=== PATIENT | male | born 1935 | race Caucasian/White ===

== ENCOUNTER → 2018-09-21 | Outpatient (CLI) | payer MEDICARE ==
[~2018-09-21] MED LIST: ADULT LOW DOSE81 MG PO; ADVAIR 100-501 EACH; ADVAIR HFA 115-12 GM INH; ASPIRIN EC81 M1 PO; COREG CR20 MG PO; DIOVAN HCT 3201 EACH PO; FISH OIL 500 M1 EAC1 PO; FLOMAX PO; FOLIC ACID0.4 MG PO; HYDROCHLOROTH12.5 MG PO; K-DUR 20 MEQ T20 MEQ PO; MINOCYCLINE HC100 M2 PO; MUCINEX600 MG PO; MUCUS RELIEF C400 MG PO; NORVASC10 MG PO; PLAVIX 75 MG TA75 MG PO; RHINOCORT AQUA8.6 GM; SIMVASTATIN40 MG PO; SINGULAIR; SINGULAIR 10 MG10 M1 PO; TAMSULOSIN HCL0.4 MG PO; VESICARE 5 MG TA5 MG PO; VESICARE10 M1 PO; VICODIN 5-5001 EACH; VITAMIN B-1100 M1 PO; ZYRTEC10 M1 PO; ZYRTEC10 M2 PO
--- NOTE | 2018-09-21 10:11 | 2DMMODE ---
[place] [address] 2 D/M-MODE ECHOCARDIOGRAM Name: DORCAS SAN Room: [facility]#: [id number] Admission: 09/21/18 Attend Phys: Aline Lomeli, Discharge: Date of : 39 Date of Service: 09/21/18 1010 Report #: [id number] THIS REPORT FOR: //name// APPROVED REPORT Study performed: 09/21/2018 08:41:55 EXAM: Comprehensive 2D, Doppler, and color-flow Echocardiogram Patient Location: Out-Patient BSA: 2.12 HR: 60 bpm BP: 115/70 mmHg Other Information Study Quality: Good Indications Aortic Valve Disease 2D Dimensions IVSd: 11.51 (7-11mm) LVOT Diam: 20.61 (18-24mm) LVDd: 46.15 mm PWd: 8.85 (7-11mm) Ascending Ao: 33.60 (22-36mm) LVDs: 29.07 (25-40mm) Aortic Root: 31.25 mm Volumes Left Atrial Volume (Systole) LA ESV Index: 27.00 mL/m2 Aortic Valve AoV Peak Dago.: 1.78 m/s AO Peak Gr.: 12.74 mmHg LVOT Max P.07 mmHg AO Mean Gr.: 7.47 mmHg LVOT Mean P.85 mmHg LVOT Max V: 1.33 m/s AO V2 VTI: 44.02 cm LVOT Mean V: 0.75 m/s JAMSHID (VTI): 2.13 cm2 LVOT V1 VTI: 28.11 cm Mitral Valve E/A Ratio: 0.90 MV Decel. Time: 250.70 ms MV E Max Dago.: 0.96 m/s MV PHT: 72.70 ms MVA (PHT): 3.03 [place]2 [place] [address] 2 D/M-MODE ECHOCARDIOGRAM Name: DORCAS SAN Room: [facility]#: [id number] Admission: 09/21/18 Attend Phys: Aline Lomeli, Discharge: Date of : 39 Date of Service: 09/21/18 1010 Report #: [id number] TDI E/Lateral E': 13.71 E/Medial E': 9.60 Medial E' Dago.: 0.10 m/s Lateral E' Dago.: 0.07 m/s Pulmonary Valve PV Peak Dago.: 0.94 m/s PV Peak Gr.: 3.57 mmHg Tricuspid Valve RAP Estimate: 5.00 mmHg TR Peak Gr.: 22.14 mmHg RVSP: 27.14 mmHg PA Pressure: 27.14 mmHg Left Ventricle The left ventricle is normal size. There is normal LV segmental wall motion. There is normal left ventricular wall thickness. Left ventricular systolic function is normal. The left ventricular ejection fraction is within the normal range. LVEF is 60%. Grade I - abnormal relaxation pattern. Right Ventricle The right ventricle is normal size. The right ventricular systolic function is normal. Atria Left atrium is mildly dilated. The right atrium size is normal. Aortic Valve Moderate aortic valve sclerosis. Trace aortic regurgitation. No hemodynamically significant valvular aortic stenosis. Mitral Valve Mild mitral annular calcification. Mild mitral regurgitation. No evidence of mitral valve stenosis. Tricuspid Valve The tricuspid valve is normal in structure. Mild tricuspid regurgitation. Pulmonic Valve The pulmonary valve is normal in structure. There is no pulmonic valvular regurgitation[place] [address] 2 D/M-MODE ECHOCARDIOGRAM Name: JSAWINDERDORCAS QUEEN Room: [facility]#: [id number] Admission: 09/21/18 Attend Phys: Alien Lomeli, Discharge: Date of : 39 Date of Service: 09/21/18 1010 Report #: [id number] The aortic root is normal in size. IVC is normal in size and collapses >50% with inspiration. Pericardium There is no pericardial effusion. <Conclusion> The left ventricle is normal size. There is normal left ventricular wall thickness. Left ventricular systolic function is normal. The left ventricular ejection fraction is within the normal range. LVEF is 60%. Grade I - abnormal relaxation pattern. The right ventricle is normal size. Left atrium is mildly dilated. The right atrium size is normal. Moderate aortic valve sclerosis. Trace aortic regurgitation. No hemodynamically significant valvular aortic stenosis. Mild mitral annular calcification. Mild mitral regurgitation. No evidence of mitral valve stenosis. The tricuspid valve is normal in structure. Mild tricuspid regurgitation. IVC is normal in size and collapses >50% with inspiration. There is no pericardial effusion. There is normal LV segmental wall motion. <ELECTRONICALLY SIGNED> By: Claus Crespo MD, FACC 09/21/18 1010 1010 1010 Claus Crespo MD, FACC /INF
== END ==
LOC: M.CRD 09-19 09:00
DX: I08.3 Combined rheumatic disorders of mitral, aortic and tricuspid valves (principal)

== ENCOUNTER → 2019-09-22 | Outpatient (CLI) | payer MEDICARE ==
--- NOTE | 2019-09-22 17:17 | CARDNUC ---
[place] [address] CARDIAC NUCLEAR IMAGING REPORT Name: DORCAS SAN BERNICE Room: [facility]#: [id number] Admission: 09/22/19 Attend Phys: Aline Lomeli, Discharge: Date of : 39 Date of Service: 09/22/19 1716 Report #: [id number] THIS REPORT FOR: cc: Sapna Baez,Sapna Dean,Sy Aldana MD [facility] ~ APPROVED REPORT Study performed: 09/22/2019 09:54:40 Exam: Nuclear Stress Test Indication: Bradycardia, s/p PCI, PAFib Patient Location: Out-Patient Stress Tech: Belgica Brown Stress Nurse: Soledad Roche R.N. Ht: 5 ft 8 in Wt: 217 lbs BSA: 2.12 m2 BMI: 32.99 Medical History Medical History: Atrial Fibrillation, CAD s/p stent, HTN, Hyperlipidemia, RBBB, Stroke/TIA, Previous cigarette smoker, presently occasional cigar smoker, Hypothyroidism. Medications: Amlodipine, ASA 81 Mg, Carvedilol, Hyzaar, Simvastatin. Allergies: Aleve Cardiac Risk Factors: Age, FHX of CAD, HTN, Hyperlipidemia, Tobacco History (Current/Recent), PAfib, Bradycardia. Previous Cardiac Procedures: PCI Pretest Chest Pain Characteristics: No chest pain Exercise History: Indeterminate Physical Disabilities: General age related weakness/Arthritis. Meds Held (24 hrs): Carvedilol. Stress Test Details Stress Test: Pharmacologic stress was paired with low level exercise. Reason for pharmacologic stress test: Age related weakness/ Arthritis.. HR Resting HR: 58 bpm Max Heart Rate (APMHR): 138 bpm Max HR Achieved: 89 bpm Target HR (85% APMHR): 117 bpm % of APMHR: 64 Recovery HR: [place] [address] CARDIAC NUCLEAR IMAGING REPORT Name: DORCAS SAN Room: [facility]#: [id number] Admission: 09/22/19 Attend Phys: Aline Lomeli, Discharge: Date of : 39 Date of Service: 09/22/19 1716 Report #: [id number] Resting BP: 109/66 mmHg Max BP: 144/62 mmHg ECG Resting ECG: Sinus Rhythm, RBBB Stress ECG: Sinus Rhythm, RBBB ST Change: None Arrhythmia: None Recovery ECG: Sinus Rhythm, RBBB Recovery ST Change: None Recovery Arrhythmia: None Clinical Reason for Termination: Completed protocol Stress Symptoms: Abdominal discomfort Exercise duration: 4 min 00 sec Exercise capacity: 2.30 METs Overall Exercise Capacity for Age: Excellent The patient tolerated Lexiscan infusion without significant cardiac symptoms. Nurse Comments An 84 year old male presented for a walking Lexiscan r/t s/p PCI, PAfib, Bradycardia. Test well tolerated. Recovery unremarkable with PO caffeine. Patient was escorted by staff to Nuclear Medicine for imaging. Patient was stable and stated he felt good at that time. Stress ECG Conclusion The baseline twelve-lead EKG shows sinus rhythm with right bundle branch block. EKGs obtained during and post Lexiscan infusion showed sinus rhythm with right bundle branch block. There were no significant ST segment changes when compared to baseline. There were no stress-induced arrhythmias. NM EXAM: Myocardial Perfusion REST/STRESS Resting Data Rest SPECT myocardial perfusion imaging was performed in supine position 30 minutes following the intravenous injection of 9.9 mCi of Tc-99m Sestamibi. Time of rest injection: 08:15 The images were gated to evaluate regional wall motion and calculate left [place] [address] CARDIAC NUCLEAR IMAGING REPORT Name: DORCAS SAN BERNICE Room: [facility]#: [id number] Admission: 09/22/19 Attend Phys: Aline Lomeli, Discharge: Date of : 39 Date of Service: 09/22/19 1716 Report #: [id number] Administration Route: IV Administration Site: Right Arm Pharmacologic Stress Pharmacologic stress test was performed by injecting Regadenoson 0.4 mg IV push followed by the intravenous injection of 32.7 mCi of Tc-99m Sestamibi. Time of stress injection: 09:55 Administration Route: IV Administration Site: Right Arm Heart Rate at time of stress injection: 88 bpm. Gated Stress SPECT was performed 45 minutes after stress injection. Prone imaging was performed. Study Quality Study: Fair Artifact: Moderate Diaphragmatic artifact Study Data At rest, the left ventricular ejection fraction was 62%.. Post stress, the left ventricular ejection was 69%.. TID = 1.02. Perfusion Perfusion images obtained in the supine position at rest and post Lexiscan stress show moderate photopenia from the base to distal inferior wall that resolves with post-stress prone imaging consistent with diaphragmatic attenuation artifact.. Post-stress prone imaging shows uniform uptake of the radioisotope throughout the myocardium. Wall Motion Normal left ventricular wall motion. Nuclear Conclusion ECG Findings: negative for ischemia Clinical Findings: negative for ischemia Nuclear Findings: negative for ischemia Exercise Capacity: not assessed Left Ventricular Function: normal Risk Study: low Perfusion images show no defect to suggest infarct or ischemia. Left ventricular systolic function appears normal on gated studies. This [place] [address] CARDIAC NUCLEAR IMAGING REPORT Name: DORCAS SAN Room: [facility] [place]#: [id number] Admission: 09/22/19 Attend Phys: Aline Lomeli, Discharge: Date of : 39 Date of Service: 09/22/19 1716 Report #: [id number] <Conclusion> The baseline twelve-lead EKG shows sinus rhythm with right bundle branch block. EKGs obtained during and post Lexiscan infusion showed sinus rhythm with right bundle branch block. There were no significant ST segment changes when compared to baseline. There were no stress-induced arrhythmias. <ELECTRONICALLY SIGNED> By: Sy Gamez MD, [facility] 09/22/191715 15 15 Sy Gamez MD, FACC /INF
== END ==
LOC: M.NUC 04-04 09:38
PROVIDERS: ATTEND Nurse Practitioner
DX: I25.10 Atherosclerotic heart disease of native coronary artery without angina pectoris (principal)